=== PATIENT | male | born 1935 | race Caucasian/White ===

== ENCOUNTER 2017-03-24 00:46 | Inpatient (IN) | payer MEDICARE, OTHER ==
[2017-03-24] VITALS (1060 sets, daily range): BP systolic 92–138; BP diastolic 55–92; PULSE 66–107; TEMP 97–98.8; O2SAT 74–100
[~2017-03-24] VITALS: Ht 177.8 cm; Wt 84.5 kg
[~2017-03-24 00:46] MED LIST: AMOXICILLIN 8751 TAB PO; ANTIBIOTIC; ASPIRIN E.C. 8181 MG PO; BENADRYL25 M2 PO; CIPRO 500MG TA500 MG PO; CLEOCIN HCL300 MG PO; COUMADIN4 MG PO; COUMADIN5 M1 IV; COZAAR100 MG PO; FE-TABS325 MG PO; FERATE27 MG PO; FINASTERIDE5 MG PO; FLOMAX 0.40.4 MG/CAP PO; FLOMAX0.4 MG PO; FOLIC ACID 40400 MCG PO; FOLIC ACID0.4 MG PO; HCTZ12.5TAB PO; IRON FERROUS S325 MG PO; LAXATIVE MAXIMU25 MG PO; LEVAQUIN 5500 MG/TA1 PO; MACROBID 1100 MG/CAP PO; MEN'S MULTIVITA1 TAB PO; MULTIPLE VITAMI1 CAP PO; NORCO 325 MG-51 TAB PO; NORVASC 5MG5 MG/TAB PO; NORVASC2.5 MG PO; PROCARDIA XL 3030 MG PO; PROCARDIA XL 6060 MG PO; PROSCAR 5MG5 MG PO; TOPROL XL 50MG50 MG PO; TYLENOL 500MG500 MG PO; VIT C; VITAMIN C BUFF500 MG PO; VITAMIN C PO; ZESTRIL 10MG10 MG PO; [UNRECOGNIZED DRUG - REMARK]; [UNRECOGNIZED DRUG - REMARK] PO
[2017-03-24 01:35] LABS: BASO # 0.1 (0.0-0.2); EOS # 0.2 (0.0-0.7); EOS % 2.9 % (0-4.0); GRAN # 4.7 (1.4-6.5); GRAN % 65.2 % (42.2-75.2); HEMATOCRIT 24.9 % (42.0-52.0); HEMOGLOBIN 7.1 g/dl (13.5-18.0); LYMPH # 1.2 (1.2-3.4); LYMPH % 17.2 % (20.0-51.0); MEAN CELL VOLUME 71 fl (80.0-100.0); MEAN CORPUSCULAR HEMOGLOBIN 20 pg (27.0-31.0); MEAN CORPUSCULAR HGB CONC 29 g/dl (33.0-37.0); MEAN PLATELET VOLUME 10.8 fl (7.4-10.4); MONO % 13.4 % (1.7-9.3); PLATELET COUNT 268 K/mm3 (130-400); RED BLOOD COUNT 3.53 M/mm3 (4.20-5.60); REDCELL DISTRIBUTION WIDTH-CV 18.8 % (11.5-14.5); WHITE BLOOD COUNT 7.2 K/mm3 (4.8-10.8)
[2017-03-24 01:40] LABS: INR 1.2 (0.8-3.0); PROTHROMBIN TIME 13.1 SECONDS (9.7-12.8)
[2017-03-24 01:49] LABS: ADJUSTED CALCIUM 8.6 mg/dL (8.4-10.2); ALANINE AMINOTRANSFERASE 36 U/L (21-72); ALKALINE PHOSPHATASE 60 U/L (50-136); ANION GAP 13 mmol/L (7-16); BILIRUBIN,TOTAL 0.7 mg/dL (0.0-1.0); BLOOD UREA NITROGEN 24 mg/dL (9-20); CALCIUM 8.6 mg/dL (8.4-10.2); CARBON DIOXIDE 20 mmol/L (22-30); CHLORIDE 104 mmol/L (98-107); CREATININE, serum 1.19 mg/dL (0.66-1.25); GLUCOSE 123 mg/dL (74-106); LIPASE 307 U/L (23-300); POTASSIUM 3.8 mmol/L (3.4-5.0); SODIUM 137 mmol/L (137-145); TOTAL PROTEIN 6.8 gm/dL (6.4-8.2)
[2017-03-24 02:01] LABS: B-TYPE NATRIURETIC PEPTIDE 1980 pg/mL (0-450); TROPONIN-I < 0.012 ng/mL (0.000-0.034)
[2017-03-24 02:13] LABS: PH 5 (5-8); SQUAMOUS EPITHELIAL 0-2 /hpf; URINE APPEARANCE Clear; URINE BACTERIA None Seen /hpf; URINE BILIRUBIN Negative (NEGATIVE); URINE BLOOD Negative (NEGATIVE); URINE COLOR Yellow; URINE GLUCOSE Negative (NEGATIVE); URINE KETONE Negative (NEGATIVE); URINE RBC 0-2 /hpf; URINE UROBILINOGEN Negative (NEGATIVE)
[2017-03-24 03:51] LABS: MAGNESIUM 1.9 mg/dL (1.6-2.3)
[2017-03-24 04:12] LABS: PARTIAL THROMBOPLASTIN TIME 30.6 SECONDS (26.0-37.0)
[2017-03-24] MEDS ORDERED: HYGROTON 2525 MG/TAB (04:32)
[2017-03-24 11:22] LABS: BASO # 0.1 (0.0-0.2); BASO % 0.6 % (0.0-2.0); EOS # 0.1 (0.0-0.7); EOS % 1.3 % (0-4.0); GRAN # 6.1 (1.4-6.5); GRAN % 72.5 % (42.2-75.2); LYMPH # 1.1 (1.2-3.4); MEAN CELL VOLUME 72 fl (80.0-100.0); MEAN CORPUSCULAR HGB CONC 28 g/dl (33.0-37.0); MEAN PLATELET VOLUME 10.4 fl (7.4-10.4); PLATELET COUNT 282 K/mm3 (130-400); RED BLOOD COUNT 3.58 M/mm3 (4.20-5.60); REDCELL DISTRIBUTION WIDTH-CV 18.8 % (11.5-14.5); WHITE BLOOD COUNT 8.4 K/mm3 (4.8-10.8)
[2017-03-24 11:31] LABS: HEMATOCRIT 25.6 % (42.0-52.0); HEMOGLOBIN 7.2 g/dl (13.5-18.0); MEAN CORPUSCULAR HEMOGLOBIN 20 pg (27.0-31.0)
[2017-03-24 11:34] LABS: CALCIUM 8.7 mg/dL (8.4-10.2); CREATININE, serum 1.19 mg/dL (0.66-1.25); POTASSIUM 3.2 mmol/L (3.4-5.0)
[2017-03-24 16:54] LABS: CALCIUM 8.6 mg/dL (8.4-10.2); CREATININE, serum 1.06 mg/dL (0.66-1.25); MAGNESIUM 1.9 mg/dL (1.6-2.3); POTASSIUM 3.4 mmol/L (3.4-5.0)
[2017-03-25] VITALS (1255 sets, daily range): BP systolic 92–119; BP diastolic 40–68; PULSE 71–89; TEMP 97.5–98.3; O2SAT 78–100
[2017-03-25 08:04] LABS: CALCIUM 8.5 mg/dL (8.4-10.2); MAGNESIUM 1.9 mg/dL (1.6-2.3); POTASSIUM 3.6 mmol/L (3.4-5.0)
[2017-03-25 08:45] LABS: MEAN CELL VOLUME 72 fl (80.0-100.0); MEAN CORPUSCULAR HGB CONC 28 g/dl (33.0-37.0); MEAN PLATELET VOLUME 11.1 fl (7.4-10.4); PLATELET COUNT 238 K/mm3 (130-400); RED BLOOD COUNT 3.54 M/mm3 (4.20-5.60); REDCELL DISTRIBUTION WIDTH-CV 18.8 % (11.5-14.5); WHITE BLOOD COUNT 7.9 K/mm3 (4.8-10.8)
[2017-03-25 08:49] LABS: HEMATOCRIT 25.3 % (42.0-52.0); HEMOGLOBIN 7.1 g/dl (13.5-18.0); MEAN CORPUSCULAR HEMOGLOBIN 20 pg (27.0-31.0)
[2017-03-25 11:00] LABS: RETIC % 2.2 % (0.5-3.52)
[2017-03-25 11:15] LABS: FERRITIN 15 ng/mL (18-464)
[2017-03-25 11:41] LABS: TOTAL IRON BINDING CAPACITY 416 ug/dL (261-462)
[2017-03-25 17:17] LABS: HEMATOCRIT 26.6 % (42.0-52.0); HEMOGLOBIN 7.9 g/dl (13.5-18.0)
[2017-03-25 17:29] LABS: CALCIUM 8.6 mg/dL (8.4-10.2); CREATININE, serum 1.01 mg/dL (0.66-1.25); MAGNESIUM 1.9 mg/dL (1.6-2.3)
[2017-03-26] VITALS (807 sets, daily range): BP systolic 95–124; BP diastolic 44–73; PULSE 67–96; TEMP 97–98.3; O2SAT 83–100
[2017-03-26 05:31] LABS: MEAN CELL VOLUME 73 fl (80.0-100.0); MEAN CORPUSCULAR HGB CONC 29 g/dl (33.0-37.0); MEAN PLATELET VOLUME 10.8 fl (7.4-10.4); PLATELET COUNT 241 K/mm3 (130-400); RED BLOOD COUNT 3.76 M/mm3 (4.20-5.60); REDCELL DISTRIBUTION WIDTH-CV 19.5 % (11.5-14.5); WHITE BLOOD COUNT 7.5 K/mm3 (4.8-10.8)
[2017-03-26 05:38] LABS: HEMATOCRIT 27.3 % (42.0-52.0); HEMOGLOBIN 7.9 g/dl (13.5-18.0); MEAN CORPUSCULAR HEMOGLOBIN 21 pg (27.0-31.0)
[2017-03-26 05:46] LABS: CALCIUM 8.2 mg/dL (8.4-10.2); CREATININE, serum 1.07 mg/dL (0.66-1.25); MAGNESIUM 1.8 mg/dL (1.6-2.3); POTASSIUM 3.2 mmol/L (3.4-5.0)
[2017-03-26 17:06] LABS: CALCIUM 8.6 mg/dL (8.4-10.2); CREATININE, serum 1.23 mg/dL (0.66-1.25); MAGNESIUM 1.9 mg/dL (1.6-2.3); POTASSIUM 4.1 mmol/L (3.4-5.0)
[2017-03-27 03:48] VITALS: BP 93/52; PULSE 81; TEMP 98.1
[2017-03-27 07:40] LABS: CALCIUM 8.4 mg/dL (8.4-10.2); CREATININE, serum 1.14 mg/dL (0.66-1.25); MAGNESIUM 1.9 mg/dL (1.6-2.3); POTASSIUM 3.6 mmol/L (3.4-5.0)
[2017-03-27 08:07] VITALS: BP 116/56; PULSE 83; TEMP 98.3
[2017-03-27 11:46] VITALS: BP 104/45; PULSE 70; TEMP 97
[2017-03-27 15:21] VITALS: BP 112/46; PULSE 86; TEMP 97.9
[2017-03-27 16:53] LABS: CALCIUM 8.4 mg/dL (8.4-10.2); CREATININE, serum 1.01 mg/dL (0.66-1.25); MAGNESIUM 1.8 mg/dL (1.6-2.3)
[2017-03-27 20:38] VITALS: BP 118/56; PULSE 91; TEMP 97.4
[2017-03-27 23:11] VITALS: BP 92/60; PULSE 88; TEMP 97.7
[2017-03-28 03:28] VITALS: BP 92/64; PULSE 110; TEMP 97.8
[2017-03-28 07:19] LABS: BASO # 0.1 (0.0-0.2); BASO % 0.9 % (0.0-2.0); EOS # 0.4 (0.0-0.7); EOS % 4.7 % (0-4.0); GRAN # 5.1 (1.4-6.5); GRAN % 66.5 % (42.2-75.2); LYMPH # 1.2 (1.2-3.4); LYMPH % 15.1 % (20.0-51.0); MEAN CELL VOLUME 74 fl (80.0-100.0); MEAN CORPUSCULAR HGB CONC 29 g/dl (33.0-37.0); MEAN PLATELET VOLUME 10.5 fl (7.4-10.4); MONO # 0.9 (0.1-0.6); MONO % 12.3 % (1.7-9.3); PLATELET COUNT 276 K/mm3 (130-400); RED BLOOD COUNT 4.25 M/mm3 (4.20-5.60); REDCELL DISTRIBUTION WIDTH-CV 20.9 % (11.5-14.5); WHITE BLOOD COUNT 7.6 K/mm3 (4.8-10.8)
[2017-03-28 07:25] LABS: HEMATOCRIT 31.5 % (42.0-52.0); HEMOGLOBIN 9.1 g/dl (13.5-18.0); MEAN CORPUSCULAR HEMOGLOBIN 21 pg (27.0-31.0)
[2017-03-28 07:34] LABS: CALCIUM 8.6 mg/dL (8.4-10.2); CREATININE, serum 0.99 mg/dL (0.66-1.25); POTASSIUM 3.5 mmol/L (3.4-5.0)
[2017-03-28 08:25] VITALS: BP 93/68; PULSE 78; TEMP 98.6
[2017-03-28 10:24] VITALS: BP 105/51; PULSE 77; TEMP 98.1
[2017-03-28 16:27] VITALS: BP 121/61; PULSE 84; TEMP 97.3
[2017-03-28 19:40] VITALS: BP 98/43; PULSE 78; TEMP 97.1
[2017-03-28 23:23] VITALS: BP 106/51; PULSE 83; TEMP 97.8
[2017-03-29 03:24] VITALS: BP 116/58; PULSE 86; TEMP 98.4
[2017-03-29 07:24] LABS: BASO % 0.5 % (0.0-2.0); EOS # 0.3 (0.0-0.7); EOS % 4.1 % (0-4.0); GRAN # 4.6 (1.4-6.5); GRAN % 62.8 % (42.2-75.2); LYMPH # 1.5 (1.2-3.4); LYMPH % 20.3 % (20.0-51.0); MEAN CELL VOLUME 75 fl (80.0-100.0); MEAN CORPUSCULAR HGB CONC 29 g/dl (33.0-37.0); MEAN PLATELET VOLUME 10.2 fl (7.4-10.4); MONO # 0.9 (0.1-0.6); MONO % 11.9 % (1.7-9.3); PLATELET COUNT 278 K/mm3 (130-400); RED BLOOD COUNT 4.03 M/mm3 (4.20-5.60); REDCELL DISTRIBUTION WIDTH-CV 21.2 % (11.5-14.5); WHITE BLOOD COUNT 7.3 K/mm3 (4.8-10.8)
[2017-03-29 07:29] LABS: HEMATOCRIT 30.3 % (42.0-52.0); HEMOGLOBIN 8.8 g/dl (13.5-18.0); MEAN CORPUSCULAR HEMOGLOBIN 22 pg (27.0-31.0)
[2017-03-29 07:44] LABS: CALCIUM 8.8 mg/dL (8.4-10.2); CREATININE, serum 1.05 mg/dL (0.66-1.25); POTASSIUM 4.1 mmol/L (3.4-5.0)
[2017-03-29 08:15] VITALS: BP 109/56; PULSE 71; TEMP 98.5
[2017-03-29] MEDS ORDERED: FLOMAX 0.40.4 MG/CAP PO (10:50)
[2017-03-29] MEDS ORDERED: ZESTRIL2.5 MG PO (10:52)
[2017-03-29] MEDS ORDERED: ASPIRIN 32325 MG/TAB PO (10:53)
[2017-03-29] MEDS ORDERED: EFFER-K20 MEQ PO (10:54)
[2017-03-29] MEDS ORDERED: BUMEX2 MG PO (10:54)
[2017-03-29] MEDS ORDERED: PACERONE400 MG PO (11:01)
[2017-03-29] MEDS ORDERED: CORDARONE200 MG/TAB PO (11:02)
[2017-03-29 12:17] VITALS: BP 103/51; PULSE 76; TEMP 97.5
[2017-03-29 15:38] VITALS: BP 110/49; PULSE 60; TEMP 97.8
[2017-03-29 20:33] VITALS: BP 133/51; PULSE 96; TEMP 97.2
[2017-03-30 00:15] VITALS: BP 91/50; PULSE 90; TEMP 97.5
[2017-03-30 04:55] VITALS: BP 100/51; PULSE 84; TEMP 97.6
[2017-03-30 06:35] LABS: BASO # 0.1 (0.0-0.2); BASO % 0.8 % (0.0-2.0); EOS # 0.3 (0.0-0.7); EOS % 4.8 % (0-4.0); GRAN # 3.9 (1.4-6.5); GRAN % 60.3 % (42.2-75.2); LYMPH # 1.4 (1.2-3.4); LYMPH % 21.4 % (20.0-51.0); MEAN CELL VOLUME 76 fl (80.0-100.0); MEAN CORPUSCULAR HGB CONC 29 g/dl (33.0-37.0); MEAN PLATELET VOLUME 9.8 fl (7.4-10.4); MONO # 0.8 (0.1-0.6); MONO % 12.2 % (1.7-9.3); PLATELET COUNT 256 K/mm3 (130-400); RED BLOOD COUNT 3.91 M/mm3 (4.20-5.60); REDCELL DISTRIBUTION WIDTH-CV 21.5 % (11.5-14.5); WHITE BLOOD COUNT 6.5 K/mm3 (4.8-10.8)
[2017-03-30 06:40] LABS: HEMATOCRIT 29.7 % (42.0-52.0); HEMOGLOBIN 8.5 g/dl (13.5-18.0); MEAN CORPUSCULAR HEMOGLOBIN 22 pg (27.0-31.0)
[2017-03-30 06:51] LABS: CALCIUM 8.7 mg/dL (8.4-10.2); CREATININE, serum 1.06 mg/dL (0.66-1.25); POTASSIUM 4.1 mmol/L (3.4-5.0)
[2017-03-30 08:00] VITALS: BP 104/51; PULSE 80; TEMP 98
[2017-03-30] MEDS ORDERED: PROCARDIA10 MG PO ×2 (10:34→10:47)
[2017-03-30 12:46] VITALS: BP 99/46; PULSE 73; TEMP 98.3
== END 2017-03-30 15:55 | disposition home or self-care (01) | DRG 292 ==
LOC: COL.ER 00:46 → ICU 03:19 → MEDICAL 03:19 → ICU 03:19 → MEDICAL 03-26 20:07
PROVIDERS: Emergency Medicine; Internal Medicine; Internal Medicine Gastroenterology; Nurse Practitioner Family; Physician Assistant
PROC: 5A2204Z Restoration of Cardiac Rhythm, Single (ICD-10-PCS; principal; 2017-03-25)
PROC: 0DJ08ZZ Inspection of Upper Intestinal Tract, Via Natural or Artificial Opening Endoscopic (ICD-10-PCS; 2017-03-28)
PROC: 0DBP8ZX Excision of Rectum, Via Natural or Artificial Opening Endoscopic, Diagnostic (ICD-10-PCS; 2017-03-28 10:45)
DX: I11.0 Hypertensive heart disease with heart failure (principal); C18.2 Malignant neoplasm of ascending colon; I50.33 Acute on chronic diastolic (congestive) heart failure; I34.0 Nonrheumatic mitral (valve) insufficiency; I48.91 Unspecified atrial fibrillation; I27.2 Other secondary pulmonary hypertension; Z87.891 Personal history of nicotine dependence; N40.1 Benign prostatic hyperplasia with lower urinary tract symptoms; R33.8 Other retention of urine; D50.0 Iron deficiency anemia secondary to blood loss (chronic); D12.8 Benign neoplasm of rectum; K57.30 Diverticulosis of large intestine without perforation or abscess without bleeding
CPT/HCPCS: 99233-AI; 99239; A4315; J0282; J1644; J1650; J1940; J2704; J3010; J7030; J7050; J7060; P9016; Q9967

== ENCOUNTER 2017-05-09 19:39 | Emergency (ER) | payer MEDICARE, OTHER ==
[~2017-05-09] VITALS: Ht 172.7 cm; Wt 82.7 kg
[~2017-05-09 19:39] MED LIST changes: +ASPIRIN 32325 MG/TAB PO; +BUMEX2 MG PO; +CORDARONE200 MG/TAB PO; +EFFER-K20 MEQ PO; +HYGROTON 2525 MG/TAB; +PACERONE400 MG PO; +PROCARDIA10 MG PO; +ZESTRIL2.5 MG PO
[2017-05-09 19:43] VITALS: TEMP 98
[2017-05-09] MEDS ORDERED: CORDARONE200 MG/TAB PO (20:27)
[2017-05-09] MEDS ORDERED: FLOMAX 0.40.4 MG/CAP PO (20:27)
[2017-05-09] MEDS ORDERED: ELIQUIS 2.5 PO (20:27)
[2017-05-09] MEDS ORDERED: TOPROL XL 50MG50 MG PO (20:28)
[2017-05-09] MEDS ORDERED: ZESTRIL 5MG5 MG PO (20:28)
[2017-05-09] MEDS ORDERED: KLOR-CON SPRIN10 MEQ PO (20:28)
[2017-05-09] MEDS ORDERED: BUMEX2 MG PO (20:28)
[2017-05-09] MEDS ORDERED: MULTI VITAMINS1 TAB PO (20:29)
[2017-05-09] MEDS ORDERED: EX-LAX25 MG PO (20:29)
[2017-05-09] MEDS ORDERED: ALEVE 220MG220 MG PO (20:29)
[2017-05-09 20:32] LABS: BASO # 0.1 (0.0-0.2); BASO % 0.7 % (0.0-2.0); EOS # 0.2 (0.0-0.7); EOS % 3.4 % (0-4.0); GRAN # 4.7 (1.4-6.5); GRAN % 65.7 % (42.2-75.2); LYMPH # 1.5 (1.2-3.4); LYMPH % 20.5 % (20.0-51.0); MEAN CELL VOLUME 80 fl (80.0-100.0); MEAN CORPUSCULAR HGB CONC 30 g/dl (33.0-37.0); MEAN PLATELET VOLUME 10.3 fl (7.4-10.4); MONO # 0.7 (0.1-0.6); MONO % 9.6 % (1.7-9.3); PLATELET COUNT 202 K/mm3 (130-400); REDCELL DISTRIBUTION WIDTH-CV 22.5 % (11.5-14.5); WHITE BLOOD COUNT 7.1 K/mm3 (4.8-10.8)
[2017-05-09 20:33] LABS: HEMATOCRIT 31.8 % (42.0-52.0); HEMOGLOBIN 9.6 g/dl (13.5-18.0); MEAN CORPUSCULAR HEMOGLOBIN 24 pg (27.0-31.0)
[2017-05-09 20:38] LABS: INR 1.2 (0.8-3.0); PROTHROMBIN TIME 12.8 SECONDS (9.7-12.8)
[2017-05-09 20:45] LABS: ADJUSTED CALCIUM 9.2 mg/dL (8.4-10.2); ALBUMIN 3.8 gm/dL (3.5-5.0); BILIRUBIN,TOTAL 0.5 mg/dL (0.0-1.0); CREATININE, serum 1.17 mg/dL (0.66-1.25); POTASSIUM 3.4 mmol/L (3.4-5.0); TOTAL PROTEIN 6.4 gm/dL (6.4-8.2)
[2017-05-09 22:27] LABS: PH 5 (5-8); SQUAMOUS EPITHELIAL 0-2 /hpf; URINE APPEARANCE Hazy; URINE BACTERIA None Seen /hpf; URINE BILIRUBIN Negative (NEGATIVE); URINE BLOOD Negative (NEGATIVE); URINE COLOR Yellow; URINE GLUCOSE Negative (NEGATIVE); URINE KETONE Negative (NEGATIVE); URINE RBC 0-2 /hpf; URINE UROBILINOGEN Negative (NEGATIVE); URINE WBC 0-2 /hpf
[2017-05-09 22:41] VITALS: BP 119/53; PULSE 58
== END 2017-05-09 22:49 | disposition home or self-care (01) ==
LOC: COL.ER 19:39
PROVIDERS: Emergency Medicine
DX: D64.9 Anemia, unspecified (principal); R55 Syncope and collapse; R00.1 Bradycardia, unspecified; I48.91 Unspecified atrial fibrillation; I50.9 Heart failure, unspecified; Z85.038 Personal history of other malignant neoplasm of large intestine
CPT/HCPCS: J7030

== ENCOUNTER 2017-10-23 19:40 | Inpatient (IN) | payer MEDICARE, OTHER ==
[~2017-10-23] VITALS: Ht 177.8 cm; Wt 161.8 kg
[~2017-10-23 19:40] MED LIST changes: +ALEVE 220MG220 MG PO; +CEPHALEXIN500 M1 PO; +ELIQUIS 2.5 PO; +EX-LAX25 MG PO; +KLOR-CON SPRIN10 MEQ PO; +MULTI VITAMINS1 TAB PO; +ZESTRIL 5MG5 MG PO
[2017-10-23 20:19] LABS: HEMATOCRIT 27.6 % (42.0-52.0); HEMOGLOBIN 9.5 g/dl (13.5-18.0); MEAN CELL VOLUME 99 fl (80.0-100.0); MEAN CORPUSCULAR HEMOGLOBIN 34 pg (27.0-31.0); MEAN CORPUSCULAR HGB CONC 34 g/dl (33.0-37.0); MEAN PLATELET VOLUME 10.2 fl (7.4-10.4); PLATELET COUNT 121 K/mm3 (130-400); RED BLOOD COUNT 2.79 M/mm3 (4.20-5.60); REDCELL DISTRIBUTION WIDTH-CV 16.5 % (11.5-14.5)
[2017-10-23 20:28] LABS: INR 1.3 (0.8-3.0); PROTHROMBIN TIME 14.6 SECONDS (9.7-12.8)
[2017-10-23 20:29] LABS: ALBUMIN 3.4 gm/dL (3.5-5.0); BILIRUBIN,TOTAL 0.6 mg/dL (0.0-1.0); CALCIUM 8.6 mg/dL (8.4-10.2); CREATININE, serum 0.87 mg/dL (0.66-1.25); TOTAL PROTEIN 6.8 gm/dL (6.4-8.2)
[2017-10-23 20:30] LABS: POTASSIUM 2.9 mmol/L (3.4-5.0)
[2017-10-23 20:31] LABS: PARTIAL THROMBOPLASTIN TIME 33.2 SECONDS (26.0-37.0)
[2017-10-23 20:47] LABS: BAND 16 % (0-10); LYMPHOCYTE 40 % (20.0-51.0); METAMYELOCYTE 7 % (0-0); MYELOCYTE 1 % (0-0); NEUTROPHILS 23 % (42.0-75.2)
[2017-10-23 20:48] LABS: ANISOCYTOSIS 1+; PLATELET ESTIMATE DECREASED (NORMAL); POLYCHROMASIA 1+
[2017-10-23 21:07] LABS: COLLECTION METHOD CLEAN CATCH
[2017-10-23 21:18] LABS: MUCOUS Present /lpf; PH 5 (5-8); SQUAMOUS EPITHELIAL 0-2 /hpf; URINE APPEARANCE Hazy; URINE BACTERIA None Seen /hpf; URINE BILIRUBIN Negative (NEGATIVE); URINE BLOOD Negative (NEGATIVE); URINE COLOR Yellow; URINE GLUCOSE Negative (NEGATIVE); URINE KETONE Trace (NEGATIVE); URINE LEUKOCYTE ESTERASE Negative (NEGATIVE); URINE NITRATE Negative (NEGATIVE); URINE PROTEIN(semi-quant) Negative (NEGATIVE); URINE UROBILINOGEN Negative (NEGATIVE)
[2017-10-23 21:50] LABS: MAGNESIUM 1.6 mg/dL (1.6-2.3); PHOSPHOROUS 2.6 mg/dL (2.5-4.5)
[2017-10-23 22:05] LABS: TROPONIN-I 0.046 ng/mL (0.000-0.034)
[2017-10-23 22:18] LABS: CREATINE KINASE 141 U/L (55-170)
[2017-10-24] VITALS (7 sets, daily range): BP systolic 105–125; BP diastolic 45–57; PULSE 70–89; TEMP 97.5–98.7
[2017-10-24 04:40] LABS: BASO % 0.4 % (0.0-2.0); EOS % 0.2 % (0-4.0); GRAN # 1.8 (1.4-6.5); GRAN % 31.8 % (42.2-75.2); LYMPH # 1.7 (1.2-3.4); LYMPH % 31.2 % (20.0-51.0); MEAN CELL VOLUME 98 fl (80.0-100.0); MEAN CORPUSCULAR HGB CONC 34 g/dl (33.0-37.0); MEAN PLATELET VOLUME 10.1 fl (7.4-10.4); MONO # 1.5 (0.1-0.6); PLATELET COUNT 109 K/mm3 (130-400); RED BLOOD COUNT 2.57 M/mm3 (4.20-5.60); REDCELL DISTRIBUTION WIDTH-CV 16.5 % (11.5-14.5)
[2017-10-24 04:43] LABS: HEMATOCRIT 25.2 % (42.0-52.0); HEMOGLOBIN 8.6 g/dl (13.5-18.0); MEAN CORPUSCULAR HEMOGLOBIN 33 pg (27.0-31.0)
[2017-10-24 04:51] LABS: CALCIUM 8.3 mg/dL (8.4-10.2); CREATININE, serum 0.86 mg/dL (0.66-1.25)
[2017-10-25 04:13] VITALS: BP 133/57; PULSE 78; TEMP 98.3
[2017-10-25 06:56] LABS: CALCIUM 8.7 mg/dL (8.4-10.2); CREATININE, serum 0.8 mg/dL (0.66-1.25); MAGNESIUM 1.9 mg/dL (1.6-2.3); POTASSIUM 3.8 mmol/L (3.4-5.0)
[2017-10-25 07:00] LABS: HEMATOCRIT 28.5 % (42.0-52.0); HEMOGLOBIN 9.5 g/dl (13.5-18.0); MEAN CELL VOLUME 101 fl (80.0-100.0); MEAN CORPUSCULAR HEMOGLOBIN 34 pg (27.0-31.0); MEAN CORPUSCULAR HGB CONC 33 g/dl (33.0-37.0); MEAN PLATELET VOLUME 10.3 fl (7.4-10.4); PLATELET COUNT 152 K/mm3 (130-400); RED BLOOD COUNT 2.82 M/mm3 (4.20-5.60); REDCELL DISTRIBUTION WIDTH-CV 16.7 % (11.5-14.5)
[2017-10-25 07:59] LABS: BAND 27 % (0-10); EOSINOPHIL 1 % (0-4); LYMPHOCYTE 31 % (20.0-51.0); MYELOCYTE 8 % (0-0); NEUTROPHILS 20 % (42.0-75.2)
[2017-10-25 08:00] LABS: ANISOCYTOSIS 1+; POLYCHROMASIA 3+; TOXIC GRANULATION PRESENT
[2017-10-25 08:56] VITALS: BP 129/61; PULSE 97; TEMP 97.8
[2017-10-25 12:27] VITALS: BP 117/50; PULSE 90; TEMP 98.5
[2017-10-25 16:54] VITALS: BP 111/51; PULSE 84; TEMP 98.3
[2017-10-25 20:01] VITALS: BP 136/97; PULSE 101; TEMP 98.5
[2017-10-25 23:33] VITALS: BP 122/51; PULSE 89; TEMP 98.8
[2017-10-26 03:54] VITALS: BP 141/54; PULSE 103; TEMP 98
[2017-10-26 06:49] LABS: MEAN CELL VOLUME 103 fl (80.0-100.0); MEAN CORPUSCULAR HGB CONC 32 g/dl (33.0-37.0); MEAN PLATELET VOLUME 10.6 fl (7.4-10.4); PLATELET COUNT 178 K/mm3 (130-400); RED BLOOD COUNT 2.72 M/mm3 (4.20-5.60); REDCELL DISTRIBUTION WIDTH-CV 16.6 % (11.5-14.5)
[2017-10-26 06:57] LABS: HEMATOCRIT 28.1 % (42.0-52.0); HEMOGLOBIN 9.1 g/dl (13.5-18.0); MEAN CORPUSCULAR HEMOGLOBIN 33 pg (27.0-31.0)
[2017-10-26 07:10] LABS: CALCIUM 8.7 mg/dL (8.4-10.2); CREATININE, serum 0.81 mg/dL (0.66-1.25); POTASSIUM 3.6 mmol/L (3.4-5.0)
[2017-10-26 07:23] LABS: BAND 16 % (0-10); LYMPHOCYTE 28 % (20.0-51.0); METAMYELOCYTE 2 % (0-0); NEUTROPHILS 38 % (42.0-75.2)
[2017-10-26 07:31] LABS: ANISOCYTOSIS 1+; HYPOCHROMIA 1+; PLATELET ESTIMATE NORMAL (NORMAL)
[2017-10-26 08:29] VITALS: BP 100/45; PULSE 89; TEMP 97.5
[2017-10-26 12:43] VITALS: BP 120/54; PULSE 99; TEMP 98.3
[2017-10-26 16:16] VITALS: BP 119/51; PULSE 92; TEMP 98.3
[2017-10-26 19:36] VITALS: BP 114/56; PULSE 94; TEMP 98.6
[2017-10-27 00:45] VITALS: BP 135/95; PULSE 85; TEMP 98.5
[2017-10-27 05:47] VITALS: BP 134/57; PULSE 86; TEMP 98.8
[2017-10-27 06:57] LABS: MEAN CELL VOLUME 103 fl (80.0-100.0); MEAN CORPUSCULAR HGB CONC 32 g/dl (33.0-37.0); MEAN PLATELET VOLUME 10.5 fl (7.4-10.4); PLATELET COUNT 178 K/mm3 (130-400); RED BLOOD COUNT 2.58 M/mm3 (4.20-5.60); REDCELL DISTRIBUTION WIDTH-CV 16.1 % (11.5-14.5)
[2017-10-27 07:04] LABS: CALCIUM 8.6 mg/dL (8.4-10.2); CREATININE, serum 0.82 mg/dL (0.66-1.25); POTASSIUM 3.8 mmol/L (3.4-5.0)
[2017-10-27 07:11] LABS: HEMATOCRIT 26.6 % (42.0-52.0); HEMOGLOBIN 8.5 g/dl (13.5-18.0); MEAN CORPUSCULAR HEMOGLOBIN 33 pg (27.0-31.0)
[2017-10-27 07:58] VITALS: BP 114/50; PULSE 74; TEMP 98.2
[2017-10-27 09:51] LABS: ANISOCYTOSIS 1+; BAND 9 % (0-10); HYPOCHROMIA 1+; LYMPHOCYTE 22 % (20.0-51.0); NEUTROPHILS 67 % (42.0-75.2); NUCLEATED RED BLOOD CELL 1 (0-6); PLATELET ESTIMATE NORMAL (NORMAL)
[2017-10-27 11:39] VITALS: BP 115/40; PULSE 79; TEMP 98.1
[2017-10-27 13:11] VITALS: BP 115/40; PULSE 79; TEMP 98.1
== END 2017-10-27 14:47 | DRG 552 ==
LOC: COL.ER 19:40 → MEDICAL 23:18
PROVIDERS: Emergency Medicine; Internal Medicine; Nurse Practitioner; Physician Assistant
DX: M50.31 Other cervical disc degeneration, high cervical region (principal); I31.3 Pericardial effusion (noninflammatory); E87.1 Hypo-osmolality and hyponatremia; M79.81 Nontraumatic hematoma of soft tissue; Z85.030 Personal history of malignant carcinoid tumor of large intestine; I48.91 Unspecified atrial fibrillation; I34.0 Nonrheumatic mitral (valve) insufficiency; E87.6 Hypokalemia; Z87.891 Personal history of nicotine dependence; D64.9 Anemia, unspecified
CPT/HCPCS: 99223-AI; 99231-AI; 99232-AI; 99239; G0378; J1644; J3010; J3475

== ENCOUNTER 2019-01-28 12:21 | Day surgery (SDC) | payer MEDICARE, OTHER ==
[2019-01-28] VITALS (9 sets, daily range): BP systolic 98–122; BP diastolic 58–93; PULSE 82–120; TEMP 98.6–99
[~2019-01-28] VITALS: Ht 177.8 cm; Wt 89.3 kg
[2019-01-28 13:12] LABS: POTASSIUM 4.2 mmol/L (3.4-5.0)
[2019-01-28 13:13] LABS: INR 1.3 (0.8-3.0); PROTHROMBIN TIME 15.6 SECONDS (9.7-12.8)
[2019-01-28 13:47] LABS: THYROID STIMULATING HORMONE 8.46 uIU/mL (0.465-4.680)
--- NOTE | 2019-01-28 15:14 | NUR ---
SEE MERGE REPORT FOR MEDICATION ADMINISTRATION TIMES WELL INTRA/POST SEDATION ASSESSMENTS.
--- NOTE | 2019-01-28 16:00 | NUR ---
Back from [employer] [facility] by bed. Alert and oriented, denies pain and needs at this time. Discussed Amiodarone IV with Dr. Cabezas. Amiodarone at 250 ml/hr to PAC right upper chest. VSS.
--- NOTE | 2019-01-28 17:24 | NUR ---
VSS. Amiodarone complete. Flushed PAC with Heparin and NS and de-accessed. Bandaid placed on site. Discharge instructions given to son/pt.
--- NOTE | 2019-01-28 17:42 | NUR ---
Transferred to private car by [facility]
== END 2019-01-28 17:42 | disposition home or self-care (01) ==
LOC: COL.CAR 12:21
PROVIDERS: Internal Medicine Interventional Cardiology
DX: I48.0 Paroxysmal atrial fibrillation (principal); I34.0 Nonrheumatic mitral (valve) insufficiency; I10 Essential (primary) hypertension; Z87.891 Personal history of nicotine dependence; Z79.01 Long term (current) use of anticoagulants; Z82.5 Family history of asthma and other chronic lower respiratory diseases; Z82.49 Family history of ischemic heart disease and other diseases of the circulatory system; Z88.2 Allergy status to sulfonamides
CPT/HCPCS: J0282; J2250; J3010; J7030; J7060

== ENCOUNTER 2019-03-29 12:03 | Emergency (ER) | payer MEDICARE, OTHER ==
[~2019-03-29] VITALS: Ht 177.8 cm; Wt 84.1 kg
[2019-03-29 12:08] VITALS: TEMP 97.6
[2019-03-29 12:55] LABS: BASO % 0.4 % (0.0-2.0); EOS # 0.1 (0.0-0.7); EOS % 0.8 % (0-4.0); GRAN # 9.2 (1.4-6.5); GRAN % 86.3 % (42.2-75.2); HEMATOCRIT 44.5 % (42.0-52.0); HEMOGLOBIN 15.1 g/dl (13.5-18.0); LYMPH # 0.8 (1.2-3.4); LYMPH % 7.3 % (20.0-51.0); MEAN CELL VOLUME 94 fl (80.0-100.0); MEAN CORPUSCULAR HEMOGLOBIN 32 pg (27.0-31.0); MEAN CORPUSCULAR HGB CONC 34 g/dl (33.0-37.0); MONO # 0.5 (0.1-0.6); MONO % 4.9 % (1.7-9.3); PLATELET COUNT 206 K/mm3 (130-400); RED BLOOD COUNT 4.74 M/mm3 (4.20-5.60); REDCELL DISTRIBUTION WIDTH-CV 14.3 % (11.5-14.5)
[2019-03-29 13:08] LABS: ALANINE AMINOTRANSFERASE 18 U/L (21-72); ALBUMIN 4.3 gm/dL (3.5-5.0); ALKALINE PHOSPHATASE 88 U/L (50-136); ANION GAP 10 mmol/L (7-16); AST,SGOT 31 U/L (15-37); BLOOD UREA NITROGEN 28 mg/dL (9-20); CALCIUM 9.5 mg/dL (8.4-10.2); CARBON DIOXIDE 28 mmol/L (22-30); CHLORIDE 102 mmol/L (98-107); CREATININE, serum 0.87 (0.66-1.25); GLUCOSE 129 mg/dL (74-106); LIPASE 151 U/L (23-300); POTASSIUM 3.9 mmol/L (3.4-5.0); SODIUM 140 mmol/L (137-145); TOTAL PROTEIN 7.6 gm/dL (6.4-8.2)
[2019-03-29 13:09] LABS: C-REACTIVE PROTEIN < 0.5 mg/dL (0.0-0.9)
[2019-03-29 14:36] VITALS: BP 127/59; PULSE 65
== END 2019-03-29 14:36 | disposition home or self-care (01) ==
LOC: COL.ER 12:03
PROVIDERS: Emergency Medicine
DX: K40.90 Unilateral inguinal hernia, without obstruction or gangrene, not specified as recurrent (principal); Z90.89 Acquired absence of other organs
CPT/HCPCS: J2270; J2405; J7040

== ENCOUNTER 2020-07-10 00:38 | Emergency (ER) | payer MEDICARE, OTHER ==
[~2020-07-10] VITALS: Ht 170.2 cm; Wt 85.5 kg
[2020-07-10 00:39] VITALS: TEMP 97.7
[2020-07-10 01:13] LABS: BASO # 0.1 (0.0-0.2); BASO % 0.7 % (0.0-2.0); EOS # 0.2 (0.0-0.7); EOS % 2.2 % (0-4.0); GRAN # 4.4 (1.4-6.5); GRAN % 63.8 % (42.2-75.2); HEMATOCRIT 42.1 % (42.0-52.0); HEMOGLOBIN 13.7 g/dl (13.5-18.0); LYMPH # 1.4 (1.2-3.4); LYMPH % 20.5 % (20.0-51.0); MEAN CELL VOLUME 100 fl (80.0-100.0); MEAN CORPUSCULAR HEMOGLOBIN 33 pg (27.0-31.0); MEAN CORPUSCULAR HGB CONC 33 g/dl (33.0-37.0); MEAN PLATELET VOLUME 11.2 fl (7.4-10.4); MONO # 0.9 (0.1-0.6); MONO % 12.5 % (1.7-9.3); PLATELET COUNT 139 K/mm3 (130-400); RED BLOOD COUNT 4.22 M/mm3 (4.20-5.60); REDCELL DISTRIBUTION WIDTH-CV 15.1 % (11.5-14.5)
[2020-07-10 01:21] LABS: INR 1.7 (0.8-3.0); PROTHROMBIN TIME 19.1 SECONDS (9.7-12.8)
[2020-07-10 01:22] LABS: ALBUMIN 3.8 gm/dL (3.5-5.0); BILIRUBIN,TOTAL 0.9 mg/dL (0.0-1.0); CALCIUM 8.6 mg/dL (8.4-10.2); CREATININE, serum 1.11 (0.66-1.25); POTASSIUM 4.4 mmol/L (3.4-5.0); TOTAL PROTEIN 6.2 gm/dL (6.4-8.2)
[2020-07-10 01:24] LABS: PARTIAL THROMBOPLASTIN TIME 60.6 SECONDS (26.0-37.0)
[2020-07-10 01:33] LABS: TROPONIN-I 0.018 ng/mL (0.000-0.035)
[2020-07-10] MEDS ORDERED: CORDARONE200 MG/TAB PO (02:29)
[2020-07-10] MEDS ORDERED: BUMEX2 MG PO (02:29)
[2020-07-10] MEDS ORDERED: SYNTHROID0.05 MG/TA PO (02:30)
[2020-07-10] MEDS ORDERED: ONE-A-DAY ESSE1 EACH PO (02:31)
[2020-07-10] MEDS ORDERED: DESYREL 50MG50 MG PO (02:38)
[2020-07-10 05:55] VITALS: BP 112/76; PULSE 99
== END 2020-07-10 05:55 | disposition home or self-care (01) ==
LOC: COL.ER 00:38
PROVIDERS: Emergency Medicine
DX: Z20.828 Contact with and (suspected) exposure to other viral communicable diseases (principal); I48.91 Unspecified atrial fibrillation; I50.9 Heart failure, unspecified; Z88.2 Allergy status to sulfonamides; Z79.01 Long term (current) use of anticoagulants
CPT/HCPCS: J1940

== ENCOUNTER 2020-08-05 17:25 | Emergency (ER) | payer MEDICARE, OTHER ==
[~2020-08-05] VITALS: Ht 170.2 cm; Wt 80.5 kg
[~2020-08-05 17:25] MED LIST changes: +DESYREL 50MG50 MG PO; +ONE-A-DAY ESSE1 EACH PO; +SYNTHROID0.05 MG/TA PO
[2020-08-05 17:31] VITALS: TEMP 97.2
[2020-08-05 18:18] LABS: BASO % 0.2 % (0.0-2.0); EOS % 0.1 % (0-4.0); GRAN # 7.3 (1.4-6.5); GRAN % 72.1 % (42.2-75.2); HEMATOCRIT 46.2 % (42.0-52.0); HEMOGLOBIN 15.3 g/dl (13.5-18.0); LYMPH # 1.4 (1.2-3.4); LYMPH % 14.1 % (20.0-51.0); MEAN CELL VOLUME 98 fl (80.0-100.0); MEAN CORPUSCULAR HEMOGLOBIN 32 pg (27.0-31.0); MEAN CORPUSCULAR HGB CONC 33 g/dl (33.0-37.0); MEAN PLATELET VOLUME 11.6 fl (7.4-10.4); MONO # 1.3 (0.1-0.6); MONO % 13.3 % (1.7-9.3); PLATELET COUNT 153 K/mm3 (130-400); RED BLOOD COUNT 4.73 M/mm3 (4.20-5.60); REDCELL DISTRIBUTION WIDTH-CV 14.8 % (11.5-14.5)
[2020-08-05 18:21] LABS: INR 1.7 (0.8-3.0); PROTHROMBIN TIME 19.6 SECONDS (9.7-12.8)
[2020-08-05 18:26] LABS: ALBUMIN 4.5 gm/dL (3.5-5.0); BILIRUBIN,TOTAL 1.5 mg/dL (0.0-1.0); CALCIUM 9.3 mg/dL (8.4-10.2); CREATININE, serum 1.16 (0.66-1.25); POTASSIUM 3.8 mmol/L (3.4-5.0); TOTAL PROTEIN 7.4 gm/dL (6.4-8.2)
[2020-08-05 18:37] LABS: TROPONIN-I 0.023 ng/mL (0.000-0.035)
[2020-08-05 18:40] LABS: COLLECTION METHOD CLEAN CATCH
[2020-08-05 18:47] LABS: MUCOUS Present /lpf; PH 5 (5-8); SQUAMOUS EPITHELIAL 0-2 /hpf; URINE APPEARANCE Hazy; URINE BACTERIA None Seen /hpf; URINE BILIRUBIN Negative (NEGATIVE); URINE BLOOD 3+ (NEGATIVE); URINE CALCIUM OXALATE CRYSTAL Present /hpf; URINE COLOR Yellow; URINE GLUCOSE Negative (NEGATIVE); URINE KETONE Negative (NEGATIVE); URINE LEUKOCYTE ESTERASE Negative (NEGATIVE); URINE NITRATE Negative (NEGATIVE); URINE PROTEIN(semi-quant) 2+ (NEGATIVE); URINE RBC 20-50 /hpf; URINE UROBILINOGEN Negative (NEGATIVE)
[2020-08-05] MEDS ORDERED: TOPROL XL 25MG25 MG PO (19:37)
[2020-08-05 20:10] VITALS: BP 109/75; PULSE 105
== END 2020-08-05 20:15 | disposition home or self-care (01) ==
LOC: COL.ER 17:25
PROVIDERS: Emergency Medicine
DX: I48.91 Unspecified atrial fibrillation (principal); I50.9 Heart failure, unspecified; Z79.01 Long term (current) use of anticoagulants

== ENCOUNTER 2020-08-06 09:30 | Inpatient (IN) | payer MEDICARE, OTHER ==
[~2020-08-06] VITALS: Ht 170.2 cm; Wt 83.7 kg
[~2020-08-06 09:30] MED LIST changes: +TOPROL XL 25MG25 MG PO
[2020-08-06 10:45] LABS: BASO % 0.2 % (0.0-2.0); EOS % 0.1 % (0-4.0); GRAN # 6.6 (1.4-6.5); GRAN % 72.7 % (42.2-75.2); HEMATOCRIT 45.1 % (42.0-52.0); LYMPH # 1.1 (1.2-3.4); LYMPH % 12.2 % (20.0-51.0); MEAN CELL VOLUME 99 fl (80.0-100.0); MEAN CORPUSCULAR HEMOGLOBIN 33 pg (27.0-31.0); MEAN CORPUSCULAR HGB CONC 33 g/dl (33.0-37.0); MEAN PLATELET VOLUME 11.9 fl (7.4-10.4); MONO # 1.3 (0.1-0.6); MONO % 14.5 % (1.7-9.3); PLATELET COUNT 154 K/mm3 (130-400); RED BLOOD COUNT 4.54 M/mm3 (4.20-5.60)
[2020-08-06 10:59] LABS: INR 2.2 (0.8-3.0); PROTHROMBIN TIME 24.5 SECONDS (9.7-12.8)
[2020-08-06 11:02] LABS: PARTIAL THROMBOPLASTIN TIME 33.7 SECONDS (26.0-37.0)
[2020-08-06 11:03] LABS: ALBUMIN 4.4 gm/dL (3.5-5.0); BILIRUBIN,TOTAL 1.7 mg/dL (0.0-1.0); CALCIUM 9.2 mg/dL (8.4-10.2); CREATININE, serum 1.17 (0.66-1.25); TOTAL PROTEIN 7.5 gm/dL (6.4-8.2)
[2020-08-06 11:26] LABS: TROPONIN-I 0.037 ng/mL (0.000-0.035)
[2020-08-06 20:13] VITALS: BP 115/37; PULSE 57; TEMP 97.4
[2020-08-06 21:42] VITALS: BP 115/37; PULSE 57; TEMP 97.4
[2020-08-07 00:10] VITALS: BP 118/74; PULSE 107; TEMP 97.3
--- NOTE | 2020-08-07 00:41 | NUR ---
Patient admit to medical floor room 315 from ER via wheelchair at 20:10 pm. Patient sitting up in bed upon enter the room. Tachypnea and SOB noticed. SPO2 78 on Room air. Applied NC on 6L/min. SPO2 100% on 6L/min. Titrate O2 to 3L/min after 30 min. SPO2 95-100% on 3L/min via NC. Patient denies any chest pain or dizziness. Assisted patient to the bathroom to void. Patient ambulates to the bathroom with a cane with unsteady gait. Scheduled medications given per order. Patient took medications without difficulty. Left hand IV site has no s/s of complications. Left arm and left hand area has some bruises noted. Offered some pudding and ice water. Patient resting in bed at this time. No acute distress noted. Call light within reach. Patient denies any needs at this time.
--- NOTE | 2020-08-07 04:38 | NUR ---
Patient confused over the night. Noticed patient was wandering around in the room. Patient's underwear is wet and there are some urine on the floor. Changed underwear and put on new gown. SPO2 100% on 3L via NC at 0400. No acute respiratory distress noted at this time. Call light within reach.
[2020-08-07 05:21] VITALS: BP 109/53; PULSE 104; TEMP 98.1
[2020-08-07 07:17] LABS: BASO % 0.2 % (0.0-2.0); EOS % 0.1 % (0-4.0); GRAN # 6.1 (1.4-6.5); GRAN % 68.5 % (42.2-75.2); HEMATOCRIT 45.4 % (42.0-52.0); LYMPH # 1.4 (1.2-3.4); LYMPH % 15.6 % (20.0-51.0); MEAN CELL VOLUME 98 fl (80.0-100.0); MEAN CORPUSCULAR HEMOGLOBIN 33 pg (27.0-31.0); MEAN CORPUSCULAR HGB CONC 33 g/dl (33.0-37.0); MEAN PLATELET VOLUME 12.7 fl (7.4-10.4); MONO # 1.4 (0.1-0.6); MONO % 15.2 % (1.7-9.3); PLATELET COUNT 134 K/mm3 (130-400); RED BLOOD COUNT 4.62 M/mm3 (4.20-5.60); REDCELL DISTRIBUTION WIDTH-CV 14.9 % (11.5-14.5)
[2020-08-07 07:31] LABS: ALBUMIN 4.2 gm/dL (3.5-5.0); BILIRUBIN,TOTAL 1.8 mg/dL (0.0-1.0); CALCIUM 9.2 mg/dL (8.4-10.2); CREATININE, serum 1.49 (0.66-1.25); MAGNESIUM 2.3 mg/dL (1.6-2.3); POTASSIUM 3.4 mmol/L (3.4-5.0)
[2020-08-07 08:08] VITALS: BP 134/69; PULSE 108; TEMP 97.6
--- NOTE | 2020-08-07 11:15 | NUR ---
Pt assessment completed and charted, medications administered per oct. Pt alert, partially oriented, needs some redirection, but cooperative w/ cares. Pt denies any chest pain, dizziness, N/V/D, abd pain, general pain, numbness or tingling. Pt walked w/ therapy using walker and 1 assist, unsteady gait. Pt has LH INT IV that flushes well. Pt on 2LNC at this time, satting well. Pt on tele, HR irreg. Critical trop resulted, Dr. Ramirez aware. No further needs at this time. Call light within reach. Pt in recliner w/ chair alarm, instructed to use call light and verbalized understanding.
--- NOTE | 2020-08-07 12:13 | NUR ---
Plans to return home locally with son as care support. Assessment: SW met with patient in room about DC plan. Patient reports that he resides with his adult son Marlen . Patient reports that he uses a walking stick and was recommended by PT to use the FWW that he has. Son is to bring it up to help with his balance. SW staffed with PT, balance needs support can offer home health. SW talked with patient about HHS, patient declined the need. Patient reports that his PCP is Dr. Ayala with [facility] and patient has Adv-Dir with both adult children designated. Patient reports that [facility] is how he obtains medications. Patient reports that he does not have any care concerns. Nothing follows.
[2020-08-07 12:16] VITALS: BP 115/57; PULSE 53; TEMP 97.9
--- NOTE | 2020-08-07 15:43 | NUR ---
Pt has had quiet day so far, instructed to use call light for assistance, verbalizes understanding. Poor appetite today. Intermittent confusion throughout day, partially oriented. No other concerns expressed.
[2020-08-07 16:39] VITALS: BP 113/58; PULSE 102
--- NOTE | 2020-08-07 18:53 | NUR ---
Kirby, pt son was called and given update, all questions answered. No further needs.
[2020-08-07 19:35] VITALS: BP 102/61; PULSE 146; TEMP 97.4
--- NOTE | 2020-08-07 22:31 | NUR ---
PT CONFUSED AND VERY IMPULSIVE SEVERAL TIMES TONIGHT. ASSISTED TO BR WITH WHEELED WALKER. VOIDED SL DARK CHRISTIANO CLEAR URINE. BUTTOCK SL RED. WEARS BRIEFS FOR INCONTINENCE. CALL LIGHT IN REACH. BED ALARM SET. O2 2L NC TO MAINTAIN 90-92%.
[2020-08-08 00:28] VITALS: BP 114/72; PULSE 113; TEMP 97.3
--- NOTE | 2020-08-08 00:39 | NUR ---
PT RESTLESS. PT PULLS O2 NC OFF FREQUENTLY. O2 84% ON RA. REPLACED O2 NC AT 4L. O2 SAT 97%. CHEEKS ARE VERY TERRA. AFEBRILE. BED ALARM BOBBIN SORTER LIGHT IN REACH.
--- NOTE | 2020-08-08 01:34 | NUR ---
LAST UA 08/05- NEG UTI. URINE STRONG ODER CHRISTIANO CLEAR. PT REMIANS RESTLESS. TOOK GOWN OFF. CONTINUES AFIB RHYTHM.
--- NOTE | 2020-08-08 03:20 | NUR ---
PT AGITATED AND TRYING TO HIT AT STAFF. VERY CONDUSED. O2 SAT 97% ON 4LNC. TOOK GOWB IFF AND TRYING TO POULL IV OUT. NOTIFIED DR PHOENIX. NEW ORDER AND REPEATED BACK FOR ATIVAN. GIVEN OVER 10MIN IV. PT CALMING ALITTLE.PLACED LICENSING AND REGISTRATION DIRECTOR TO SIT W/PT.
--- NOTE | 2020-08-08 03:27 | NUR ---
PT HAS PERIODS OF REST W/ RESTLESSNESS AND CONFUSION
--- NOTE | 2020-08-08 03:51 | NUR ---
STILL RESTLESS BUT LESS AGITATED. O2 SAT 98% ON 4LNC.
[2020-08-08 04:14] VITALS: BP 115/43; PULSE 122; TEMP 97.5
[2020-08-08 08:00] VITALS: BP 117/84; PULSE 128
--- NOTE | 2020-08-08 08:06 | NUR ---
PATIENT IS RESTING IN BED WITH TIMES OF BEING RESTLESS PULLING AT TELE LEADS. HE HAS LABORED BREATHING THEN IT GOES BACK TO NORMAL. O2 4L NASAL CANNULA SAT 91-98%. WILL CONTINUE TO SIT WITH HIM.
--- NOTE | 2020-08-08 10:41 | NUR ---
LAB HERE TO DRAW LABS AND RESPIRATORY HERE TO DRAW BLOOD GAS. HE IS RESTLESS WHILE IN BED.
[2020-08-08 10:43] LABS: ARTERIAL BLD GAS O2 SATURATION 94.6 % (92-100); ARTERIAL BLOOD GAS BASE EXCESS 2.7 (-2-2); ARTERIAL BLOOD GAS HCO3 26.8 meq/L (22-26); ARTERIAL BLOOD GAS PCO2 39.7 mmHg (35-45); ARTERIAL BLOOD GAS PO2 74.5 mmHg (80-100); ARTERIAL BLOOD GAS pH 7.45 (7.35-7.45)
--- NOTE | 2020-08-08 11:00 | NUR ---
SCHEDULED LOPRESSOR IVP GIVEN BP WAS 152/130. TELE HAS CALLED WITH HEART RATE 120-130'S. WILL CONTINUE TO STAY WITH PATIENT
[2020-08-08 11:22] LABS: HEMATOCRIT 46.5 % (42.0-52.0); HEMOGLOBIN 15.3 g/dl (13.5-18.0); MEAN CELL VOLUME 97 fl (80.0-100.0); MEAN CORPUSCULAR HEMOGLOBIN 32 pg (27.0-31.0); MEAN CORPUSCULAR HGB CONC 33 g/dl (33.0-37.0); MEAN PLATELET VOLUME 11.8 fl (7.4-10.4); PLATELET COUNT 166 K/mm3 (130-400); RED BLOOD COUNT 4.78 M/mm3 (4.20-5.60); REDCELL DISTRIBUTION WIDTH-CV 14.6 % (11.5-14.5)
--- NOTE | 2020-08-08 11:26 | NUR ---
[facility] NOTIFIED OF HEART RATE PER TELE. WILL BE GOING TO CT SHORTLY.
[2020-08-08 11:34] LABS: ALBUMIN 3.9 gm/dL (3.5-5.0); BILIRUBIN,TOTAL 1.8 mg/dL (0.0-1.0); CALCIUM 8.8 mg/dL (8.4-10.2); CREATININE, serum 1.16 (0.66-1.25); POTASSIUM 3.3 mmol/L (3.4-5.0); TOTAL PROTEIN 6.7 gm/dL (6.4-8.2)
[2020-08-08 11:46] LABS: TROPONIN-I 0.023 ng/mL (0.000-0.035)
[2020-08-08 12:01] LABS: BAND 12 % (0-10); LYMPHOCYTE 11 % (20.0-51.0); NEUTROPHILS 69 % (42.0-75.2); PLATELET ESTIMATE NORMAL (NORMAL)
[2020-08-08 12:28] VITALS: BP 125/70; PULSE 109; TEMP 97.7
--- NOTE | 2020-08-08 12:30 | NUR ---
PATIENT WENT TO CT SCAN VIA HOSPITAL BED AND HAS RETURNED. HE WAS INCONTINENT OF URINE, HE WAS CLEANED UP AND REPOSITIONED IN THE BED. HE CONTINUES TO BE RESTLESS. HE HAS PERIODS OF APNEA AROUND 20 SECONDS. BREATHING IS LABORED AT THIS TIME. I HAVE NOTIFIED [facility]. NEW ORDERS
--- NOTE | 2020-08-08 13:00 | NUR ---
NOTIFIED OF PATIENT STATUS. HOUSE SUPERVISIOR IS AWARE ALSO
[2020-08-08 13:15] VITALS: BP 142/74; PULSE 115
[2020-08-08 14:08] LABS: INR 1.7 (0.8-3.0); PROTHROMBIN TIME 19.5 SECONDS (9.7-12.8)
--- NOTE | 2020-08-08 14:45 | NUR ---
Patient family has arrived. patient is now on comfort care and family is allowed to visit per [facility] Supervisior. 2mg ivp morphine given at this time.
--- NOTE | 2020-08-08 16:14 | NUR ---
patient resting in bed with son and daughter at bedside. 4mg ivp morphine given at this time. he appears to be restless in bed and breaths are labored.
--- NOTE | 2020-08-08 17:23 | NUR ---
PATIENT IS RESTLESS AND APPEARS TO HAVE LABORED BREATHING. PRN MORPHINE AND ATIVAN GIVEN
--- NOTE | 2020-08-08 19:18 | NUR ---
PATIENT HAVING EPISODES OF 35 SECONDS OF APNEA AND 30 SECONDS OF BREATHING BACK AND FORTH. BREATHING IN LABORED. PRN 4MG MORPHINE GIVEN IVP
[2020-08-08 20:00] VITALS: BP 95/67; PULSE 73; TEMP 97.7
--- NOTE | 2020-08-08 22:57 | NUR ---
Patient laying in bed comfortably with eyes closed at 1900. Periods of apnea 30 sec noticed. Guppy breathing and terminal secretions noted. Patient appears comfortable. Pain scale on FLACC 0 out of 10. No response to verbal or tactile stimulations. Families at bedside. Emotional support provided to the family members. Noticed patient has no breathing at 22:50 pm. No heart rate for a full minute with stethoscope auscultate. No pulses palpable. Julienne HARPER at bedside and confirmed patient . Notified hospitalist Eli HAY and house officer. Notified family members via phone.
--- NOTE | 2020-08-08 23:25 | NUR ---
[phone]. Patient not a candidate. #[phone].
== END 2020-08-09 02:12 | disposition expired ==
LOC: COL.ER 09:30 → MEDICAL 13:03 → COL.ER 13:03 → MEDICAL 13:03
PROVIDERS: Emergency Medicine; Physician Assistant; ADMIT Hospitalist
DX: I13.0 Hypertensive heart and chronic kidney disease with heart failure and stage 1 through stage 4 chronic kidney disease, or unspecified chronic kidney disease (principal); I60.9 Nontraumatic subarachnoid hemorrhage, unspecified; I21.A1 Myocardial infarction type 2; I50.33 Acute on chronic diastolic (congestive) heart failure; I61.5 Nontraumatic intracerebral hemorrhage, intraventricular; I48.0 Paroxysmal atrial fibrillation; I34.0 Nonrheumatic mitral (valve) insufficiency; N18.30 Chronic kidney disease, stage 3 unspecified; Z66 Do not resuscitate; Z51.5 Encounter for palliative care; I27.20 Pulmonary hypertension, unspecified; E03.9 Hypothyroidism, unspecified; N40.0 Benign prostatic hyperplasia without lower urinary tract symptoms; R94.5 Abnormal results of liver function studies; T46.2X5A Adverse effect of other antidysrhythmic drugs, initial encounter; Y92.239 Unspecified place in hospital as the place of occurrence of the external cause; Z79.01 Long term (current) use of anticoagulants; Z85.038 Personal history of other malignant neoplasm of large intestine; Z87.891 Personal history of nicotine dependence; Z88.2 Allergy status to sulfonamides
CPT/HCPCS: 99222-AI; 99233-AI; C9132; J0282; J2060; J2270; J7060